=== PATIENT | female | born 1995 | race Caucasian/White ===

== ENCOUNTER → 2018-04-11 20:58 | Emergency (ER) | payer BC, OTHER ==
[~2018-04-11 20:58] MED LIST: Azithromycin TAB* 250 MG PO ONE; Levonorgestrel 1.5 MG TAB PO ONE; Lidocaine 1%* 5 ML VIAL ONE; Ondansetron ODT TAB* 4 MG ONE; Ondansetron ODT TAB* 4 MG SL PRN; cefTRIAXone VIAL(*) 250 MG VIAL IM ONE; metroNIDAZOLE TAB* 250 MG PO ONE
[2018-04-11 21:05] VITALS: BP 124/81
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
== END | disposition home or self-care (01) ==
LOC: ED 20:58
DX: T74.21XA Adult sexual abuse, confirmed, initial encounter (principal); Y07.9 Unspecified perpetrator of maltreatment and neglect; Z11.4 Encounter for screening for human immunodeficiency virus [HIV]
CPT/HCPCS: 36415; 84702; 86703; 86803; 87340; 96372; 99284; A9270-GY; J0696

== ENCOUNTER 2019-08-07 12:41 | Emergency (ER) | payer BC ==
[2019-08-07 13:13] VITALS: BP 120/84
[2019-08-07] MEDS ORDERED: Ketorolac *IM* INJ* 60 MG/2 ML VIAL IM ONE (13:33)
[2019-08-07] MEDS ORDERED: Ondansetron ODT TAB* 4 MG SL ONE (13:33)
--- NOTE | 2019-08-07 13:35 | UC ---
Complaint Female HPI - HPI Summary HPI Summary: 24 yo female presents with left flank pain. She tells me that last night she developed some left flank stabbing pain that was mild. This morning pain is worse and she feels nauseous. She has not had anything to eat today due to nausea. She is currently on her period. She states she had a kidney stone on the right side and this feels similar. Denies fever, chills, abdominal pain, dysuria, urinary frequency, diarrhea, SOB, or chest pain. No vaginal discharge. - History Of Current Complaint Chief Complaint: UCBackPain Stated Complaint: SIDE PAIN Time Seen by Provider: 08/07/19 13:14 Hx Obtained From: Patient Hx Last Menstrual Period: 08/06/19 Onset/Duration: Sudden Onset Severity Initially: Mild Severity Currently: Moderate Pain Intensity: 7 Pain Scale Used: 0-10 Numeric - Allergies/Home Medications Allergies/Adverse Reactions: Allergies Allergy/AdvReac Type Severity Reaction Status Date / Time No Known Allergies Allergy Unverified 08/07/19 13:07 PMH/Surg Hx/FS Hx/Imm Hx - Additional Past Medical History Additional PMH: Right renal stones Psychological History: Anxiety, Depression - Surgical History Surgical History: None - Family History Known Family History: Negative: Hypertension, Diabetes - Social History Lives: With Family Alcohol Use: None Substance Use Type: None Smoking Status (MU): Never Smoked Tobacco - Immunization History Vaccination Up to Date: Yes Review of Systems All Other Systems Reviewed And Are Negative: No Constitutional: Positive: Negative Skin: Positive: Negative Respiratory: Positive: Negative Cardiovascular: Positive: Negative Gastrointestinal: Positive: Nausea Genitourinary: Positive: Other - Left flank pain Neurological: Positive: Negative Psychological: Positive: Negative Physical Exam - Summary Physical Exam Summary: GENERAL: NAD. WDWN. No pain distress. SKIN: No rashes, sores, lesions, or open wounds. NECK: Supple. Nontender. No lymphadenopathy. CHEST: CTAB. No r/r/w. No accessory muscle use. Breathing comfortably and in no distress. CV: RRR. Without m/r/g. Pulses intact. Cap refill <2seconds ABDOMEN: Mild left CVA TTP. Soft. NTTP. No distention or guarding. Bowel sounds present NEURO: Alert. PSYCH: Age appropriate behavior. Triage Information Reviewed: Yes Vital Signs: Initial Vital Signs Temp 97.9 F 08/07/19 13:08 Pulse 58 08/07/19 13:08 Resp 16 08/07/19 13:08 BP 120/84 08/07/19 13:08 Pulse Ox 99 08/07/19 13:08 Laboratory Tests 08/07/19 08/07/19 13:31 13:33 POC Urine Color Red A POC Urine Clarity Cloudy POC Urine pH 6.0 POC Ur Specif Charlo 1.025 POC Urine Protein 2+ A POC Ur Glucose (UA) Negative POC Urine Ketones Negative POC Urine Blood 3+ A POC Urine Nitrite Negative POC Urine Bilirubin Negative POC Urine Urobilinogen 0.2 POC U Leukocyte Esteras Negative POC Ur Test Negative Vital Signs Reviewed: Yes Diagnostics - Radiology Ct ab/pelv Radiology Interpretation Completed By: Radiologist Summary of Radiographic Findings: KIDNEYS: There are multiple left renal calyceal stones measuring up to 0.4 cm. There is a 0.5 cm calculus of the left UPJ with mild pelvocaliectasis. IMPRESSION: LEFT NEPHROLITHIASIS INCLUDING A LEFT UPJ CALCULUS WITH MILD PELVIC CALIECTASIS. Complaint Female Dx - Course Course Of Treatment: CT as above. Discussed with pt. Will start her on flomax, zofran, and norco prn pain. Advised to call Urology at the number below to schedule an appointment for a recheck within 1 week - Differential Dx/Diagnosis Provider Diagnosis: Renal calculi Discharge ED - Sign-Out/Discharge Documenting (check all that apply): Patient Departure All imaging exams completed and their final reports reviewed: Yes - Discharge Plan Condition: Stable Disposition: HOME Prescriptions: Hydrocodone/Acetaminophen [[place] 5-325 Tablet] 1 each PO Q8H PRN #9 tablet MDD 3 PRN Reason: Pain - Moderate Ondansetron ODT TAB* [Zofran 4 MG Odt TAB*] 4 mg PO Q8H PRN #12 tab.odt PRN Reason: Nausea Tamsulosin CAP* [Flomax CAP*] 0.4 mg PO DAILY #14 cap Patient Education Materials: Kidney Stones (ED), Renal Colic (ED) Referrals: Ashley Crocker MD [Primary Care Provider] - Steve Ramos MD [Medical Doctor] - As Soon As Possible Additional Instructions: If you develop a fever, shortness of breath, chest pain, new or worsening symptoms - please call your PCP or go to the ED immediately. Drink plenty of water! Strain your urine to try and catch the stone for testing. Please call Urology at the number below to schedule a follow up appointment within 1 week for a recheck of your stone - Billing Disposition and Condition Condition: STABLE Disposition: Home - Attestation Statements Provider Attestation: I was available for consult. This patient was seen by the [facility]. The patient was not presented to, seen by, or examined by me. -Caryl
== END 2019-08-07 14:30 | disposition home or self-care (01) ==
LOC: UCEAST 12:41
DX: N20.0 Calculus of kidney (principal); N28.89 Other specified disorders of kidney and ureter; Z87.442 Personal history of urinary calculi
CPT/HCPCS: 74176; 81003; 84702; 99212; A9270-GY; G0463; J1885

== ENCOUNTER 2019-08-12 07:33 | Emergency (ER) | payer BC ==
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
[2019-08-12 07:47] VITALS: BP 132/97
--- NOTE | 2019-08-12 08:35 | UC ---
Back Pain HPI - HPI Summary HPI Summary: Ms. Howard was here in the second and diagnosed with a left 5 mm UPJ kidney stone. She's been doing fine at home but today she has more pain and has vomited several times. The pain is still in the same spot on the left side. She denies any fever or chills. - History of Current Complaint Chief Complaint: UCGI Stated Complaint: VOMITING AND SIDE PAIN Time Seen by Provider: 08/12/19 08:04 Hx Obtained From: Patient Hx Last Menstrual Period: 08/06/19 Onset/Duration: Sudden Onset Timing: Constant Severity Initially: Moderate Severity Currently: Moderate Pain Intensity: 8 Character: Aching Aggravating Factor(s): Nothing Alleviating Factor(s): Nothing Associated Signs And Symptoms: Positive: Negative - Allergies/Home Medications Allergies/Adverse Reactions: Allergies Allergy/AdvReac Type Severity Reaction Status Date / Time No Known Allergies Allergy Unverified 08/12/19 07:47 PMH/Surg Hx/FS Hx/Imm Hx Previously Healthy: Yes - Surgical History Surgical History: None - Family History Known Family History: Negative: Hypertension, Diabetes - Social History Alcohol Use: Occasionally Substance Use Type: None Smoking Status (MU): Never Smoked Tobacco - Immunization History Vaccination Up to Date: Yes Review of Systems All Other Systems Reviewed And Are Negative: Yes Physical Exam - Summary Physical Exam Summary: She is nontoxic in appearance, her vitals are stable and she does not appear to be in any distress. Triage Information Reviewed: Yes Appearance: Well-Appearing, No Pain Distress Vital Signs: Initial Vital Signs Temp 97.4 F 08/12/19 07:39 Pulse 59 08/12/19 07:39 Resp 18 08/12/19 07:39 BP 132/97 08/12/19 07:39 Pulse Ox 97 08/12/19 07:39 Vital Signs Reviewed: Yes Respiratory Exam: Normal Cardiovascular Exam: Normal Abdominal Exam: Normal Musculoskeletal Exam: Normal - No CVA tenderness Neurological Exam: Normal Back Pain Course/Dx - Course Course Of Treatment: I spoke with Dr. Thibodeaux about following up as I don't think she is going to pass this half centimeter stone on her own. She looks fairly comfortable and I will give her pain medication and he will follow her up in the office. Her UA again shows only microscopic blood. - Differential Dx/Diagnosis Provider Diagnosis: Kidney stone on left side Discharge ED - Sign-Out/Discharge Documenting (check all that apply): Patient Departure All imaging exams completed and their final reports reviewed: Yes - Discharge Plan Condition: Stable Disposition: HOME Patient Education Materials: Kidney Stones (ED) Referrals: Ashley Crocker MD [Primary Care Provider] - Madi Thibodeaux MD [Medical Doctor] - - Billing Disposition and Condition Condition: STABLE Disposition: Home
== END 2019-08-12 09:20 | disposition home or self-care (01) ==
LOC: UCEAST 07:33
DX: N20.0 Calculus of kidney (principal)
CPT/HCPCS: 74018; 81003; 99212; G0463

== ENCOUNTER 2019-09-19 17:56 | Emergency (ER) | payer BC ==
[2019-09-19] MEDS ORDERED: Ondansetron ODT TAB* 4 MG PO ONE (18:18)
[2019-09-19] MEDS ORDERED: Ketorolac INJ* 30 MG/ML 1 ML VIAL IV PUSH ONE (18:40)
[2019-09-19] MEDS ORDERED: NS 0.9% 1000 ML** 1,000 ML IV ONE (18:42)
--- NOTE | 2019-09-19 19:13 | UC ---
Complaint Female HPI - HPI Summary HPI Summary: 24-year-old female with left flank pain which started at noon today. She has had some intermittent nausea and some urinary frequency. She took one Azo pill today. She denies any fever or chills. She has a history of a kidney stone approximately one month ago and she states this feels similar to that. She did not follow-up with a urologist at the time. - History Of Current Complaint Chief Complaint: UCGU Stated Complaint: SIDE PAIN Time Seen by Provider: 09/19/19 18:18 Hx Obtained From: Patient Hx Last Menstrual Period: 2 weeks ago ?: No Onset/Duration: Sudden Onset Timing: Constant Severity Initially: Moderate Severity Currently: Moderate Pain Intensity: 7 Character: Sharp Aggravating Factor(s): Nothing Associated Signs And Symptoms: Positive: Back Pain, Nausea - Allergies/Home Medications Allergies/Adverse Reactions: Allergies Allergy/AdvReac Type Severity Reaction Status Date / Time No Known Allergies Allergy Unverified 08/12/19 07:47 Home Medications: Home Medications Amlodipine Bes/Olmesartan Med [Emily 5-20 mg] 1 tab PO Q12H PRN 09/19/19 [ History Confirmed 09/19/19] Etonogest/Eth.estradiol (Nf) [Nuvaring Vaginal Ring] 1 each VAGINAL .SEE COMMENTS 09/19/19 [History Confirmed 09/19/19] PMH/Surg Hx/FS Hx/Imm Hx Previously Healthy: Yes GI/ History: Kidney Stones - Patient had a kidney stone one month ago. - Surgical History Surgical History: None - Family History Known Family History: Negative: Hypertension, Diabetes - Social History Alcohol Use: Occasionally Substance Use Type: None Smoking Status (MU): Never Smoked Tobacco - Immunization History Vaccination Up to Date: Yes Review of Systems All Other Systems Reviewed And Are Negative: Yes Genitourinary: Positive: Frequency, Urgency Musculoskeletal: Positive: Other: - Left flank pain radiating around her back. Is Patient Immunocompromised?: No Physical Exam Triage Information Reviewed: Yes Appearance: Well-Appearing, No Pain Distress, Well-Nourished Vital Signs: Initial Vital Signs Temp 98.1 F 09/19/19 18:19 Pulse 58 09/19/19 18:19 Resp 18 09/19/19 18:19 BP 130/65 09/19/19 18:19 Pulse Ox 99 09/19/19 18:19 Vital Signs Reviewed: Yes Respiratory: Positive: Lungs clear, Normal breath sounds, No respiratory distress, No accessory muscle use Cardiovascular: Positive: RRR, No Murmur, Pulses Normal, Brisk Capillary Refill Abdomen Description: Positive: Nontender, No Organomegaly, Soft. Negative: CVA Tenderness (R), CVA Tenderness (L), Distended, Guarding, Hepatomegaly, Splenomegaly Bowel Sounds: Positive: Present Musculoskeletal Exam: Normal Neurological Exam: Normal Psychological Exam: Normal Skin Exam: Normal Re-Evaluation - Re-Evaluation First Eval Change: Improved - Patient is pain free. No further nausea. She would like to go home and she may continue increasing fluids and I wrote a prescription for Zofran 4 mg every 8 hours as needed for nausea and Motrin 600 mg every 8 hours as needed for pain. If she develops pain during the night she is to go to the emergency room for further treatment. Complaint Female Dx - Course Course Of Treatment: Patient was given Zofran 4 mg by mouth. He was given 1 L of normal saline and Toradol 30 mg IV. Renal Sonogram:FINDINGS: Right kidney: Right kidney measures 9.3 x 4.4 x 4.1 cm (88 cc). No solid cortical lesions, calculi, or pelvocaliectasis. Left kidney: Left kidney measures 11.3 x 6.7 x 4.9 cm (195 cc). Midpole nonobstructing renal calculus measuring up to 0.8 cm. No pelvocaliectasis or solid cortical lesions. Bladder: The bladder is decompressed but otherwise normal. Pre-void volume = 10 mL. Ureteral jets are not identified. IMPRESSION: 1. Left nephrolithiasis. 2. Nondistended bladder with no ureteral jets which is nonspecific. Tomorrow she is to call the urologist and make an appointment to be seen. - Differential Dx/Diagnosis Provider Diagnosis: Kidney stone on left side Discharge ED - Sign-Out/Discharge Documenting (check all that apply): Patient Departure All imaging exams completed and their final reports reviewed: Yes - Discharge Plan Condition: Good Disposition: HOME Prescriptions: Ibuprofen TAB* [Motrin TAB* 600 MG] 600 mg PO Q8H PRN #20 tab PRN Reason: Pain - Mild Ondansetron HCl [Zofran] 4 mg PO Q8H PRN #15 tablet PRN Reason: Nausea Patient Education Materials: Kidney Stones (ED) Referrals: Madi Thibodeaux MD [Medical Doctor] - Steve Ramos MD [Medical Doctor] - Ashley Crocker MD [Primary Care Provider] - Additional Instructions: Increase fluids. Definite follow-up with the urologist by phone tomorrow to schedule an appointment. If your pain returns or worsens you are to go to the emergency room for further evaluation and treatment. - Billing Disposition and Condition Condition: GOOD Disposition: Home
[2019-09-19 20:47] VITALS: BP 128/76
== END 2019-09-19 20:35 | disposition home or self-care (01) ==
LOC: UCEAST 17:56
DX: N20.0 Calculus of kidney (principal)
CPT/HCPCS: 76775; 81003; 84702; 87086; 96360; 96374; 99212; A9270-GY; G0463; J1885

== ENCOUNTER 2019-11-20 19:19 | Emergency (ER) | payer BC ==
--- OUTSIDE RECORDS SUMMARY | 2019-11-20 19:24 | XMS REPORT | Summary of Care ---
:1995 Author Organization [facility] Address [address] [address] Care Team Providers Name Role Phone Ashley Crocker Primary Care Provider Reason for Visit Reason Comments Follow Up medication refill, pt stated she is doing well on the prozac Encounter Details Date Type Department Care Team Description 11/11/2019 Office Visit [facility] [place], Anxiety and depression ( Primary Dx); Practice MD Ashley Insulin resistance; [address] [facility] Elevated prolactin level (HCC) [place] [address] [place] [address] [phone] Allergies No Known Allergiesdocumented as of this encounter (statuses as of 11/11/2019) Medications Medication Sig Dispensed Refills Start Date End Date Status Etonogestrel-Ethin Place 1 Device 0 Active yl Estradiol into the (NUVARING) vagina EVERY 0.12-0.015 MG/24HR 28 DAYS. Vaginal RING Fluoxetine HCl 40 Take 1 Cap by 30 Cap 1 11/11/2019 Active MG Oral Cap mouth DAILY. Drospirenone-Ethin Take 1 Tab by 28 Tab 5 10/03/2018 11/11/2019 Discontinued yl Estradiol (KAI) mouth DAILY AT 3-0.02 MG Oral Tab 1400. fluoxetine Take 1 Cap by 30 Cap 0 10/24/2019 11/11/2019 Discontinued (PROZAC) 20 MG mouth DAILY. Oral Cap documented as of this encounter (statuses as of 11/11/2019) Active Problems Problem Noted Date Insulin resistance 09/17/2018 Nephrolithiasis 12/18/2017 documented as of this encounter (statuses as of 11/11/2019) Immunizations Name Administration Dates Next Due DTAP Vaccine 07/10/2001, 10/15/1997, 01/27/1997, 1996, 1996 HIB 10/15/1997, 01/27/1997, 1996, 1996 Hepatitis A Vaccine Peds 02/26/2009, 06/05/2008 Hepatitis B Vaccine 05/24/2006, 01/27/1997, 1996 Human Papillomavirus 12/20/2008, 08/04/2008, 06/05/2008 Influenza (IM) Preservative Free 08/27/2019, 12/18/2017 MENINGOCOCCAL CONJUGATE VACCINE 06/10/2013, 06/05/2008 MMR [...] Sign Reading Time Taken Comments Blood Pressure 110/62 11/11/2019 10:38 AM EST Pulse 72 11/11/2019 10:38 AM EST Temperature 37.4 11/11/2019 10:38 AM EST C (99.3 F) Respiratory Rate - - Oxygen Saturation 100% 11/11/2019 10:38 AM EST Inhaled Oxygen Concentration - - Weight 89.6 kg (197 lb 9.6 oz) 11/11/2019 10:38 AM EST Height 170.2 cm (5' 7") 11/11/2019 10:38 AM EST Body Mass Index 30.95 11/11/2019 10:38 AM EST documented in this encounter Patient Instructions Patient InstructionsAshley Crocker MD - 11/11/2019 10:40 AM EST1. Increase Prozac to 40 mg once a day ( 2 tablets of 20 mg or 1 tablet of 40 mg) 2. Follow up in 3 weeks and as needed documented in this encounter Progress Notes Ashley Crocker MD - 11/11/2019 10:40 AM EST Patient: Donya Howard Date of Service: 11/11/2019 Subjective: Donya Howard is a 24-y.o. female who presents for Chief Complaint Patient presents with Follow Up medication refill, pt stated she is doing well on the prozac Patient comes follow up anxiety/depression Depression symptoms are well controlled on current dose of Prozac, but recently was having anxiety attacks 1-2 times a week Tolerates Prozac well Also has history of insulin resistance, slightly elevated Prolactin Periods are regular on Nuvaring Past Medical History: Diagnosis Date Depression Kidney stone No current outpatient medications on file as of 11/11/2019. No current facility-administered medications on file as of 11/11/2019. No Known Allergies Review of Systems: All remaining review of systems was negative. Objective: BP 110/62 (BP Location: Left arm, Patient Position: Sitting) Pulse 72 Temp 99.3 F (37.4 C) Ht 5' 7" (1.702 m) Wt 197 lb 9.6 oz (89.6 kg) SpO2 100 % BMI 30.95 kg/m2 General appearance: alert, well appearing, and in no distress. Mental Status: alert, oriented to person, place, and time, normal mood, behavior , speech, dress, motor activity, and thought processes. ICD-9-CM ICD-10-CM 1. Anxiety and depression 300.00 F41.9 311 F32.9 2. Insulin resistance 277.7 E88.81 INSULIN LEVEL COMPREHENSIVE METABOLIC PANEL 3. Elevated prolactin level (HCC) 253.1 E22.9 PROLACTIN Patient Instructions 1. Increase Prozac to 40 mg once a day ( 2 tablets of 20 mg or 1 tablet of 40 mg ) 2. Follow up in 3 weeks and as needed Adacel next visit Author: Ashley Crocker MD documented in this encounter Plan of Treatment Date Type Specialty Care Team Description 12/02/2019 Office Visit Family Practice Ashley Crocker MD [address] [address] [phone] Name Type Priority Associated Diagnoses Order Schedule INSULIN LEVEL Lab Routine Insulin resistance Ordered: 11/11/2019 COMPREHENSIVE METABOLIC Lab Routine Insulin resistance Ordered: 11/11/2019 PANEL PROLACTIN Lab Routine Elevated prolactin level Ordered: 11/11/2019 (HCC) Health Maintenance Due Date Last Done Comments DTaP/Tdap/Td Vaccines (7 - 05/07/2017 05/07/2007, 07/10/2001, Tdap) 10/15/1997, Additional history exists DEPRESSION SCREENING 11/11/2020 11/11/2019 PAP SMEAR 01/08/2021 01/08/2018 HPV IMMUNIZATION SERIES Completed 12/20/2008, 08/04/2008, 06/05/2008 HEPATITIS A IMMUNIZATION Completed 02/26/2009, 06/05/2008 SERIES MENINGOCOCCAL VACCINE IMM Completed 06/10/2013, 06/05/2008 INFLUENZA VACCINE Completed 08/27/2019, 12/18/2017 PNEUMOCOCCAL 0-64 YRS Aged Out No longer eligible based on patient's age to complete this topic documented as of this encounter Results Not on filedocumented in this encounter Visit Diagnoses Diagnosis Insulin resistance Dysmetabolic Syndrome X Elevated prolactin level (HCC) Other and unspecified anterior pituitary hyperfunction Anxiety and depression Dysthymic disorder documented in this encounter Insurance Payer Benefit Plan / Subscriber ID Effective Dates Phone Address Type Group BCBS NATIONAL BCBS NATIONAL xxxxxxxxxxxx 2017-Pres[place] Blue t Cross/Blue Shield documented as of this encounter
[2019-11-20 19:36] VITALS: BP 143/89
--- NOTE | 2019-11-20 19:37 | UC ---
Abdominal Pain Female HPI - HPI Summary HPI Summary: 24 yo female presents with ?kidney stone. She has had many issues with kidney stones over the last 6 months. This morning she woke up and noticed left flank pain. Around midday she started having increased pain, vomiting, and felt feverish. She was at work and states they would not let her leave. She has vomited about 10 times today. Nothing to eat. Took a zofran around 1600 that did not help. She has pain with urination. She denies SOB, chest pain, abdominal pain. She is followed by [facility] and states they are trying to have her strain her urine to test a stone, but she has not been successful yet. - History of Current Complaint Chief Complaint: UCGI Stated Complaint: VOMITING Time Seen by Provider: 11/20/19 19:37 Hx Obtained From: Patient Hx Last Menstrual Period: TODAY Onset/Duration: Sudden Onset Severity Initially: Moderate Severity Currently: Moderate Pain Intensity: 5 Allergies/Adverse Reactions: Allergies Allergy/AdvReac Type Severity Reaction Status Date / Time No Known Allergies Allergy Unverified 11/20/19 19:34 PMH/Surg Hx/FS Hx/Imm Hx - Additional Past Medical History Additional PMH: Kidney stones Psychological History: Anxiety - Surgical History Surgical History: None - Family History Known Family History: Negative: Hypertension, Diabetes - Social History Occupation: Employed Full-time Lives: With Family Alcohol Use: Occasionally Substance Use Type: None Smoking Status (MU): Never Smoked Tobacco - Immunization History Vaccination Up to Date: Yes Review of Systems All Other Systems Reviewed And Are Negative: No Constitutional: Positive: Fever Skin: Positive: Negative Eyes: Positive: Negative ENT: Positive: Negative Respiratory: Positive: Negative Cardiovascular: Positive: Negative Gastrointestinal: Positive: Vomiting, Nausea Genitourinary: Positive: Dysuria, Other - Flank pain Neurovascular: Positive: Negative Neurological: Positive: Negative Psychological: Positive: Negative Physical Exam - Summary Physical Exam Summary: GENERAL: NAD. WDWN. SKIN: No rashes, sores, lesions, or open wounds. NECK: Supple. Nontender. No lymphadenopathy. CHEST: CTAB. No r/r/w. No accessory muscle use. Breathing comfortably and in no distress. CV: RRR. Pulses intact. Cap refill <2seconds ABDOMEN: Soft. NTTP. Mild left CVA tenderness. Bowel sounds present NEURO: Alert. PSYCH: Age appropriate behavior. Triage Information Reviewed: Yes Vital Signs: Initial Vital Signs Temp 100.5 F 11/20/19 19:34 Pulse 108 11/20/19 19:34 Resp 18 11/20/19 19:34 BP 143/89 11/20/19 19:34 Pulse Ox 100 11/20/19 19:34 Laboratory Tests 11/20/19 11/20/19 19:42 19:47 POC Urine Color Dark yellow POC Urine Clarity Clear POC Urine pH 5.5 POC Ur Specif [place] 1.025 POC Urine Protein Negative POC Ur Glucose (UA) Negative POC Urine Ketones Negative POC Urine Blood 2+ A POC Urine Nitrite Negative POC Urine Bilirubin 1+ A POC Urine Urobilinogen 0.2 POC U Leukocyte Esteras 1+ A POC Ur Test Negative Vital Signs Reviewed: Yes Abd Pain Female Course/Dx - Course Course Of Treatment: UA as above. Febrile with positive leuks and known history of kidney stones. Unable to perform US this evening at . Discussed with pt and recommend going to the ED for further evaluation. Pt was agreeable to this and her mother will drive her. - Differential Dx/Diagnosis Provider Diagnosis: History of kidney stones, Fever, Vomiting Discharge ED - Sign-Out/Discharge Documenting (check all that apply): Patient Departure All imaging exams completed and their final reports reviewed: No Studies - Discharge Plan Condition: Stable Disposition: HOME-RECOMMEND TO ED Referrals: Ashley Crocker MD [Primary Care Provider] - Additional Instructions: Please go to the ER - it appears you may have an infected kidney stone - Billing Disposition and Condition Condition: STABLE Disposition: Home-Recommend to ED
[2019-11-20] MEDS ORDERED: Ondansetron ODT TAB* 4 MG SL ONE (19:45)
== END 2019-11-20 19:55 | disposition home health service (06) ==
LOC: UCEAST 19:19
DX: R11.2 Nausea with vomiting, unspecified (principal); R50.9 Fever, unspecified; R30.0 Dysuria; Z87.442 Personal history of urinary calculi
CPT/HCPCS: 81003; 84702; 87077; 87086; 87186; 99212; G0463

== ENCOUNTER 2019-11-20 20:09 | Inpatient (IN) | payer BC ==
[2019-11-20] MEDS ORDERED: NS 0.9% 1000 ML** 1,000 ML IV ONE ×2 (22:27→23:16)
--- NOTE | 2019-11-20 22:27 | ED ---
GI/ HPI - HPI Summary HPI Summary: Patient with history of recurrent left flank pain over the past couple months complains of left flank pain and nausea and vomiting starting at 7 AM today. Vomiting at least 20 times. Evaluated at [facility] and sent to the ED for further evaluation. Temperature 100.5 at convenient care. Patient has had +[address] in September. Being followed by Dr. Thibodeaux urology. Patient states she gets flareups of flank pain which then resolve. Per patient urology has advised her to strain her urine. Patient says she is straining her urine, but does not strain while at work and is unsure if she has passed a stone at any point during these episodes of recurrent flank pain. Denies cough, sore throat , CP, SOB, diarrhea, abdominal pain, change in urine, change in BM. Denies medical history. - History of Current Complaint Chief Complaint: EDAbdPain Time Seen by Provider: 11/20/19 22:20 Stated Complaint: POSS KIDNEY STONE PER PT Hx Obtained From: Patient Hx Last Menstrual Period: TODAY Onset/Duration: Started Hours Ago Timing: Constant Severity: Moderate Current Severity: Moderate Pain Intensity: 7 Location of Pain: Flank Pain Characteristics: Sharp, Colicy Associated Signs and Symptoms: Positive: Nausea, Vomiting, Flank Pain Aggravating Factor(s): Nothing Alleviating Factor(s): Nothing - Allergy/Home Medications Allergies/Adverse Reactions: Allergies Allergy/AdvReac Type Severity Reaction Status Date / Time No Known Allergies Allergy Verified 11/20/19 20:12 PMH/Surg Hx/FS Hx/Imm Hx Endocrine/Hematology History: Denies: Hx Diabetes, Hx Thyroid Disease Cardiovascular History: Denies: Hx Hypertension Respiratory History: Denies: Hx Asthma, Hx Chronic Obstructive Pulmonary Disease (COPD) GI History: Denies: Hx Ulcer History: Denies: Hx Dialysis Sensory History: Denies: Hx Eye Prosthesis Opthamlomology History: Denies: Hx Legally Blind EENT History: Denies: Hx Deafness Infectious Disease History: No Infectious Disease History: Denies: Hx Clostridium Difficile, Hx Hepatitis, Hx Human Immunodeficiency Virus (HIV), Hx of Known/Suspected MRSA, Hx Shingles, Hx Tuberculosis, Hx Known/ Suspected VRE, Hx Known/Suspected VRSA, History Other Infectious Disease, Traveled Outside the [place] in Last 30 Days - Family History Known Family History: Negative: Hypertension, Diabetes - Social History Alcohol Use: Occasionally Substance Use Type: Reports: None Smoking Status (MU): Never Smoked Tobacco Review of Systems Positive: Fever Eyes: Negative ENT: Negative Cardiovascular: Negative Respiratory: Negative Positive: Vomiting Positive: flank pain Musculoskeletal: Negative Skin: Negative Neurological: Negative Psychological: Normal All Other Systems Reviewed And Are Negative: Yes Physical Exam Triage Information Reviewed: Yes Vital Signs On Initial Exam: Initial Vitals Temp Pulse Resp BP Pulse Ox 97.6 F 95 18 157/83 99 11/20/19 20:12 11/20/19 20:12 11/20/19 20:12 11/20/19 20:12 11/20/19 20:12 Vital Signs Reviewed: Yes Appearance: Positive: Well-Appearing Skin: Positive: Warm Head/Face: Positive: Normal Head/Face Inspection Eyes: Positive: Normal Neck: Positive: Supple Respiratory/Lung Sounds: Positive: Clear to Auscultation Cardiovascular: Positive: Normal Abdomen Description: Positive: Nontender. Negative: CVA Tenderness (R), CVA Tenderness (L) Musculoskeletal: Positive: Normal Neurological: Positive: Normal Psychiatric: Positive: Normal AVPU Assessment: Alert - Pierre Coma Scale Best Eye Response: 4 - Spontaneous Best Motor Response: 6 - Obeys Commands Best Verbal Response: 5 - Oriented Coma Scale Total: 15 Procedures - Sedation Patient Received Moderate/Deep Sedation with Procedure: No Diagnostics - Vital Signs Vital Signs Temp Pulse Resp BP Pulse Ox 11/20/19 20:12 97.6 F 95 18 157/83 99 - Laboratory Result Diagrams: 11/20/19 23:03 11/20/19 23:03 Lab Statement: Any lab studies that have been ordered have been reviewed, and results considered in the medical decision making process. GIGU Course/Dx - Course Course Of Treatment: Patient with history of recurrent left flank pain over the past couple months complains of left flank pain and nausea and vomiting starting at 7 AM today. Vomiting at least 20 times. Evaluated at and sent to the ED for further evaluation. Temperature 100.5 at convenient care. Patient has had +[address] in September. Being followed by Dr. Thibodeaux urology. Patient states she gets flareups of flank pain which then resolve. Per patient urology has advised her to strain her urine. Patient says she is straining her urine, but does not strain while at work and is unsure if she has passed a stone at any point during these episodes of recurrent flank pain. Denies cough, sore throat, CP, SOB, diarrhea, abdominal pain, change in urine, change in BM. Denies medical history. Patient mildly tachycardic with heart rate between 101 20. Vital signs otherwise within normal limits. WBC 16. COPD 2. Potassium 4.3. Urine positive for UTI. Renal ultrasound indicates lack of left ureteral jet, suggesting obstruction. Discussed patient with urology Dr. Thibodeaux recommends admission with urology evaluation in the morning. - Diagnoses Provider Diagnoses: Ureteral obstruction, left, UTI (urinary tract infection) Discharge ED - Sign-Out/Discharge Documenting (check all that apply): Patient Departure - Discharge Plan Condition: Stable Disposition: ADMITTED TO [facility] - Billing Disposition and Condition Condition: STABLE Disposition: Admitted to [facility]
[2019-11-20 22:37] LABS: Urine Appearance Cloudy; Urine Bilirubin Negative (Negative); Urine Blood 3+ (Negative); Urine Color Yellow; Urine Glucose Negative (Negative); Urine Ketones 1+ (Negative); Urine Nitrite Negative (Negative); Urine Protein 1+(30 mg/dL) (Negative); Urine Specific Gravity 1.016 (1.010-1.030); Urine Urobilinogen Negative (Negative)
[2019-11-20 22:39] LABS: Urine Bacteria 1+ (Absent); Urine Red Blood Cell 3+(>10/hpf) (Absent); Urine Squamous Epithelial Cell Present (Absent); Urine White Blood Cell 2+(11-20/hpf) (Absent)
[2019-11-20] MEDS ORDERED: Ketorolac INJ* 30 MG/ML 1 ML VIAL IV ONE (23:09)
[2019-11-20] MEDS ORDERED: Ondansetron INJ* 2 MG/ML VIAL IV ONE (23:09)
[2019-11-20 23:13] LABS: ABS Lymphocytes 0.2 10^3/ul (1.0-4.8); ABS Monocytes 0.4 10^3/ul (0-0.8); ABS Neutrophils 15.3 10^3/ul (1.5-7.7); Hematocrit 38 % (35-47); Hemoglobin 13.5 g/dL (12.0-16.0); Lymphocyte % 1.4 %; Mean Corpuscular HGB Conc 35 g/dL (31-36); Mean Corpuscular Hemoglobin 33 pg (27-31); Mean Corpuscular Volume 93 fL (80-97); Platelet Count 263 10^3/uL (150-450); Red Blood Count 4.14 10^6 /uL (3.70-4.87); Red Cell Distribution Width 12 % (10-15)
[2019-11-20] MEDS ORDERED: cefTRIAXone(*) 2 GM in NS 0.9% 100 ML* 100 ML IVPB ONE (23:17)
[2019-11-20 23:29] LABS: ALT 13 U/L (7-52); AST 15 U/L (13-39); Albumin 3.9 g/dL (3.2-5.2); Albumin/Globulin Ratio 1.2 (1-3); Alkaline Phosphatase 53 U/L (34-104); Anion Gap 10 mmol/L (2-11); BUN/Creatinine Ratio 12.1 (8-20); Blood Urea Nitrogen 13 mg/dL (6-24); C Reactive Protein 82.54 mg/L (<8.01); CO2 Carbon Dioxide 25 mmol/L (22-32); Calcium 8.9 mg/dL (8.6-10.3); Chloride 100 mmol/L (101-111); EGFR African American 76.9 (>60); EGFR Non-African American 63.5 (>60); Globulin 3.2 g/dL (2-4); Glucose 103 mg/dL (70-100); Potassium 3.3 mmol/L (3.5-5.0); Sodium 135 mmol/L (135-145); Total Protein 7.1 g/dL (6.4-8.9)
[2019-11-20 23:35] LABS: HCG Pregnancy < 0.60 mIU/mL
[2019-11-21] MEDS ORDERED: Potassium Chlor TAB* 20 MEQ TAB.ER PO ONE (00:16)
[2019-11-21] MEDS ORDERED: Acetaminophen TAB* 325 MG ONE (01:37)
--- NOTE | 2019-11-21 05:12 | HP ---
CC: Dr. Ashley Crocker * HISTORY AND PHYSICAL: DATE OF ADMISSION: 11/20/19 - EMERGENCY DEPT PRIMARY CARE PHYSICIAN: Dr. Ashley Crocker. CHIEF COMPLAINT: Left-sided flank pain. HISTORY OF PRESENT ILLNESS: This is a 24-year-old female with past medical history of kidney stones, who now presents to the emergency room because of a left-sided flank pain. The patient reports that the pain started about 20 hours prior to now. The left-sided flank pain, sharp pain that comes and goes, it was initially 8/10, currently it is 5/10. The pain is located in the left flank, pain radiates to the groin. There are no fevers or chills. She does have some burning with urination; however, reports that there is no blood in her urine. In the emergency room, the patient was seen and evaluated. Dr. Thibodeaux, urologist was contacted who recommended the patient be admitted for ureteral stent placement, subsequently the hospitalist service was called. PAST MEDICAL HISTORY: Kidney stones. PAST SURGICAL HISTORY: None. MEDICATIONS: Home medications: None. ALLERGIES: No known drug allergies. FAMILY HISTORY: Mother: Possible kidney surgery. Father: Does not know of any medical issues in her father. SOCIAL HISTORY: The patient lives at home, works at a [employer], does not smoke , occasional alcohol use. REVIEW OF SYSTEMS: She does not have any fevers, no chills, no changes with her vision or hearing, no sore throat, no chest pain, no shortness of breath, no palpitations, no cough, no sputum production, no abdominal pain. She is having left-sided flank pain, there is some nausea and vomiting; however. Otherwise, the full review of systems that was done otherwise is negative, otherwise as listed in the HPI. PHYSICAL EXAMINATION GENERAL: This is a well developed, well nourished, young female, lying in bed, in no acute distress. VITAL SIGNS: Blood pressure 99/58, heart rate of 110, respiratory rate of 18, saturation of 98% on room air. HEENT: Pupils are equal, round, reactive to light, atraumatic, normocephalic. NECK: Supple with no JVD. She does not have any cervical lymphadenopathy. RESPIRATORY: There is no tachypnea, no use of accessory muscles. Lungs are clear without any wheezing, rales, or rhonchi. HEART: There is no chest wall tenderness, regular tachycardia with no murmurs, rubs, or gallops. ABDOMEN: Normoactive bowel sounds. Abdomen is soft. There is tenderness at the left flank region as well as the suprapubic region. EXTREMITIES: There is no lower extremity edema. No calf tenderness. Dorsalis pedis is 2+ bilaterally. There is no clubbing, cyanosis, or edema. Range of motion at the knee is intact bilaterally. PSYCH: Mood is appropriate. DIAGNOSTIC STUDIES/LAB DATA: Sodium of 135, potassium of 3.3, chloride of 100 , bicarb of 25, BUN of 13, creatinine of 1.07, glucose of 103. Total bilirubin of 1.6, AST of 15, ALT of 13, alkaline phosphatase of 53, total protein of 7.1, CRP of 82.54. Hemoglobin of 13.5, hematocrit of 38.3, WBC of 16.0, platelets of 263. The patient's urinalysis is pending. Renal ultrasound shows that there is mild left hydronephrosis, but no visible calculus. IMPRESSION AND PLAN: 1. Right sided flank pain with left-sided hydronephrosis: Likely, the patient may have a kidney stone on the left side. Start the patient on IV fluid, Urology has been consulted. They recommended a ureteral stent placement in the morning, made the patient n.p.o.,Pain control with PRN medications. 2. Mild hypotension: This could be secondary to underlying urinary tract infection. I started the patient on IV fluids. 3. Possible urinary tract infection with left hydronephrosis: I started the patient on Rocephin. 4. The patient is admitted as an observation on the medical floor. N.p.o. Vitals per floor protocol. [id number]/[facility] #: [id number] [facility]
[2019-11-21 06:13] LABS: Urine Appearance Cloudy; Urine Bacteria Absent (Absent); Urine Bilirubin Negative (Negative); Urine Blood 3+ (Negative); Urine Color Amber; Urine Glucose Negative (Negative); Urine Ketones Negative (Negative); Urine Nitrite Negative (Negative); Urine Protein 1+(30 mg/dL) (Negative); Urine Red Blood Cell 2+(6-10/hpf) (Absent); Urine Specific Gravity 1.014 (1.010-1.030); Urine Squamous Epithelial Cell Present (Absent); Urine Urobilinogen Negative (Negative); Urine White Blood Cell 3+(>20/hpf) (Absent)
[2019-11-21] MEDS ORDERED: Iohexol 180 (CONTRAST) 10 ML SDV IV ONE (06:25)
[2019-11-21] MEDS ORDERED: Lidocaine 2% PF * 5 ML VIAL ONE ×2 (06:33)
[2019-11-21] MEDS ORDERED: Propofol* 10 MG/ML 20 ML BTL ONE (06:33)
[2019-11-21] MEDS ORDERED: Midazolam* 1 MG/ML 2 ML VIAL (2 MG) ONE (06:33)
[2019-11-21] MEDS ORDERED: fentaNYL* 50 MCG/ML 2 ML VIAL (100 MCG VIAL) ONE (06:34)
[2019-11-21] MEDS ORDERED: Ondansetron INJ* 2 MG/ML VIAL IV PRN (07:00)
[2019-11-21] MEDS ORDERED: cefTRIAXone(*) 1 GM in NS 0.9% 50 ML* 50 ML IVPB SCH (07:00)
[2019-11-21] MEDS ORDERED: Ondansetron INJ* 2 MG/ML VIAL ONE (07:10)
[2019-11-21] MEDS ORDERED: Ketorolac INJ* 30 MG/ML 1 ML VIAL ONE (07:10)
[2019-11-21] MEDS ORDERED: Metoclopramide IV* 5 MG/ML 2 ML VIAL ONE (07:10)
[2019-11-21] MEDS ORDERED: Phenylephrine 40 MCG/ML SYRINGE ONE ×2 (07:10→07:16)
[2019-11-21] MEDS ORDERED: Dexamethasone IV* 4 MG/ML 1 ML (4 MG) ONE (07:10)
[2019-11-21] MEDS ORDERED: Acetaminophen TAB* 325 MG PO PRN (07:24)
[2019-11-21] MEDS ORDERED: Naloxone* 0.4 MG/ML 1 ML VIAL IV PRN (07:24)
[2019-11-21] MEDS ORDERED: oxyCODONE TAB* 5 MG TAB PO PRN (07:24)
[2019-11-21] MEDS ORDERED: DiMENhydriNATE IV* 50 MG/ML VIAL IV PUSH PRN (07:24)
[2019-11-21] MEDS ORDERED: fentaNYL* 50 MCG/ML 2 ML VIAL (100 MCG VIAL) IV PRN (07:24)
[2019-11-21] MEDS: NS 0.9% 1000 ML** 1,000 ML IV SCH ×2 (08:35→17:42)
[2019-11-21] MEDS: cefTRIAXone* 1 GM in NS 0.9% 50 ML BAG IVPB SCH (10:29)
--- NOTE | 2019-11-21 12:29 | PN ---
Hospitalist Progress Note Date of Service: 11/21/19 Pt seen and examined at bedside.Reports improvement in flank pain.Pl see H and P done by Dr Flores a few hours ago for full details.Pt is s/p ureteral stent insertion with Dr Thibodeaux. Blood culture positive for gram neg bacilli likely urinary source.Ua + for infection.Will await results and speciation.will continue Ceftriaxone IV for broad spectrum antibiotics. Made inpatient.Will stay in the hospitals till cultures finalized on iv antibotics and then iv or po abx based on culture and clinical progression
[2019-11-21] MEDS: Acetaminophen TAB* 325 MG PO PRN ×2 (16:53→23:23)
--- NOTE | 2019-11-21 21:12 | OP ---
CC: Dr. Crocker * DATE OF OPERATION: 11/21/19 - ROOM #332 DATE OF : [birth year] SURGEON: Madi Thibodeaux MD ANESTHESIOLOGIST: Dr. Blackmon. ANESTHESIA: General. PRE-OP DIAGNOSES: 1. Left renal colic. 2. Left pyelonephritis. 3. History of left renal calculi. POST-OP DIAGNOSES: 1. Left renal colic. 2. Left pyelonephritis. 3. History of left renal calculi. OPERATIVE PROCEDURE: 1. Cystoscopy. 2. Left retrograde pyelography. 3. Insertion of left ureteral stent (6-Macedonian). INDICATIONS FOR PROCEDURE: Ms. Howard is a 24-year-old white female who presented 3 months ago to the emergency room with symptoms of left renal colic and was noted on noncontrast CT of the abdomen and pelvis to have a 6 mm calculus at the left ureteropelvic junction and there were 2 other smaller calculi in the left kidney. She was managed conservatively. She was referred by her PCP for urology consultation, but she did not pursue. There was no documentation that the stone had passed. The patient presented to the urgent care center yesterday evening because of one - day history of left renal colic. She was then referred to the emergency room . She associated nausea and vomiting and she a fever of 101. CBC in the emergency room showed a white count of 16,000 with a shift to the left. Her urine was positive for infection. Renal ultrasound showed mild left hydronephrosis, but no calculi were seen. No jets were noted from the left ureteral orifice and good jets noted from the right orifice. Because the patient had recent CT, it was not repeated to avoid additional x- ray exposure. With the history of left renal calculi, fever, elevated white count, absent Lt ureteral jets on ultrasound, and infected urine, decision was made to proceed with urgent placement of a left ureteral stent in preparation for definitive treatment of the stone. PATHOLOGY: At cystoscopy, the bladder mucosa looked normal. There were no changes of cystitis. No suspicious bladder lesions seen. There was an orthotopic orifice on each side. No jets were noted from the left orifice. There was no difficulty introducing the guidewire in the left kidney. There was slightly concentrated urine from the left kidney, but did it not look infected. Retrograde pyelography showed fullness of the calices, but no significant hydronephrosis. DESCRIPTION OF PROCEDURE: After successful general anesthesia, the patient was placed in the lithotomy position and was prepped and draped for a cystoscopy. Cystoscopy was performed. The bladder was inspected and the above findings were noted. A flexible-tip hybrid guidewire was introduced into the left orifice and positioned in the area of the renal pelvis. After draining the collecting system , a retrograde pyelography was then performed. A size 6-Macedonian stent was then placed with the proximal end coiling in the renal pelvis and the distal end coiling inside the bladder. There was good drainage of contrast from the kidney and no extravasation. The patient tolerated the procedure well and left the operating room in good condition. The plan is to observe the patient for the next 24 hours and keep her on IV antibiotics. A KUB will be obtained to check for left renal and ureteral calculi. Decision on the definitive treatment of the stone will then be made. [id number]/CPS #: [id number] ETIENNE
[2019-11-22] MEDS ORDERED: Ibuprofen TAB* 400 MG PO ONE (00:30)
[2019-11-22] MEDS ORDERED: NS 0.9% 1000 ML** 1,000 ML IV ONE (00:31)
[2019-11-22] MEDS ORDERED: Ibuprofen TAB* 400 MG ONE ×2 (00:42→13:48)
[2019-11-22] MEDS: NS 0.9% 1000 ML** 1,000 ML IV SCH ×3 (01:47→23:35)
[2019-11-22 06:40] LABS: ABS Monocytes 0.7 10^3/ul (0-0.8); ABS Neutrophils 10.1 10^3/ul (1.5-7.7); Eosinophil % 0.1 %; Hematocrit 32 % (35-47); Hemoglobin 11.1 g/dL (12.0-16.0); Lymphocyte % 8.1 %; Mean Corpuscular HGB Conc 35 g/dL (31-36); Mean Corpuscular Hemoglobin 33 pg (27-31); Mean Corpuscular Volume 93 fL (80-97); Mean Platelet Volume 7.1 fL (7.4-10.4); Platelet Count 169 10^3/uL (150-450); Red Blood Count 3.38 10^6 /uL (3.70-4.87); Red Cell Distribution Width 13 % (10-15); White Blood Count 11.8 10^3/uL (3.5-10.8)
[2019-11-22 07:00] LABS: BUN/Creatinine Ratio 8.1 (8-20); Calcium 7.7 mg/dL (8.6-10.3); EGFR African American 84.1 (>60); EGFR Non-African American 69.5 (>60); Potassium 3.7 mmol/L (3.5-5.0)
[2019-11-22] MEDS: cefTRIAXone* 1 GM in NS 0.9% 50 ML BAG IVPB SCH (09:40)
[2019-11-22] MEDS: Acetaminophen TAB* 325 MG PO PRN ×2 (10:42→20:57)
--- NOTE | 2019-11-22 16:27 | PN ---
Subjective Date of Service: 11/22/19 Interval History: Reports feeling a lot better today,no further flank pain.headache present Objective Active Medications: Acetaminophen (Tylenol Tab*) 650 mg PO Q6H PRN PRN Reason: MILD PAIN or TEMP > 100.4 Last Admin: 11/22/19 10:42 Dose: 650 mg Sodium Chloride (Ns 0.9% 1000 Ml) 1,000 mls @ 150 mls/hr IV PER RATE [facility] Last Admin: 11/22/19 01:47 Dose: 150 mls/hr Ceftriaxone Sodium 1 gm/ (Sodium Chloride) 50 mls @ 100 mls/hr IVPB Q24H [facility] Last Admin: 11/22/19 09:40 Dose: 100 mls/hr Ondansetron HCl (Zofran Inj*) 4 mg IV Q6H PRN PRN Reason: NAUSEA Vital Signs - 8 hr 11/22/19 11/22/19 11:37 15:39 Temperature 98.7 F 98 F Pulse Rate 83 78 Respiratory 16 16 Rate Blood Pressure 116/65 115/73 (mmHg) O2 Sat by Pulse 100 100 Oximetry Oxygen Devices in Use Now: None Eyes: No Scleral Icterus Ears/Nose/Mouth/Throat: NL Teeth, Lips, Gums Neck: NL Appearance and Movements; NL JVP Respiratory: Symmetrical Chest Expansion and Respiratory Effort Cardiovascular: NL Sounds; No Murmurs; No JVD Abdominal: NL Sounds; No Tenderness; No Distention Extremities: No Edema Skin: No Rash or Ulcers Result Diagrams: 11/22/19 06:28 11/22/19 06:28 Microbiology and Other Data: Microbiology 11/20/19 22:53 Aerobic Blood Culture - Final Blood Venous Escherichia Coli Anaerobic Blood Culture - Preliminary No Growth Day 1 11/20/19 23:03 Aerobic Blood Culture - Preliminary Blood Venous No Growth Day 1 Anaerobic Blood Culture - Final Escherichia Coli Assess/Plan/Problems-Billing Assessment: - Patient Problems (1) Sepsis Current Visit: Yes Status: Acute Comment: E coli in Blood On ceftriaxone Sensitive to ceftriaxone Repeat blood cx tomorrow after 48h to eval clearing. If clear and based on clinical progress can decide on po versus iv antibiotics (2) Nephrolithiasis Current Visit: Yes Status: Acute Code(s): N20.0 - CALCULUS OF KIDNEY SNOMED Code(s): 96189273 Comment: with hydro and uti s/p ureteral stent placement kub today reviewed will need further f/u with urology once infection clears (3) UTI (urinary tract infection) Current Visit: Yes Status: Acute Comment: likely source of sepsis ceftriaxone
[2019-11-22] MEDS: Ibuprofen TAB* 400 MG PO PRN (22:04)
[2019-11-23] MEDS: NS 0.9% 1000 ML** 1,000 ML IV SCH ×3 (06:12→20:47)
[2019-11-23 06:16] LABS: ABS Lymphocytes 0.6 10^3/ul (1.0-4.8); ABS Monocytes 0.3 10^3/ul (0-0.8); ABS Neutrophils 4.4 10^3/ul (1.5-7.7); Eosinophil % 0.3 %; Hematocrit 33 % (35-47); Hemoglobin 11.6 g/dL (12.0-16.0); Lymphocyte % 11.9 %; Mean Corpuscular HGB Conc 35 g/dL (31-36); Mean Corpuscular Hemoglobin 33 pg (27-31); Mean Corpuscular Volume 93 fL (80-97); Mean Platelet Volume 7.2 fL (7.4-10.4); Nucleated Red Blood Cells % 0.1; Platelet Count 174 10^3/uL (150-450); Red Blood Count 3.54 10^6 /uL (3.70-4.87); Red Cell Distribution Width 13 % (10-15); White Blood Count 5.4 10^3/uL (3.5-10.8)
[2019-11-23 06:27] LABS: BUN/Creatinine Ratio 7.9 (8-20); Calcium 8.1 mg/dL (8.6-10.3); EGFR African American 95.1 (>60); EGFR Non-African American 78.6 (>60); Potassium 3.6 mmol/L (3.5-5.0)
[2019-11-23] MEDS: Ibuprofen TAB* 400 MG PO PRN ×2 (07:58→16:59)
[2019-11-23] MEDS: Acetaminophen TAB* 325 MG PO PRN (07:59)
[2019-11-23] MEDS: cefTRIAXone* 1 GM in NS 0.9% 50 ML BAG IVPB SCH (09:32)
--- NOTE | 2019-11-23 14:25 | PN ---
Subjective Date of Service: 11/23/19 Interval History: Reports feeling better,.no flank pain nausea Objective Active Medications: Acetaminophen (Tylenol Tab*) 650 mg PO Q6H PRN PRN Reason: MILD PAIN or TEMP > 100.4 Last Admin: 11/23/19 07:59 Dose: 650 mg Sodium Chloride (Ns 0.9% 1000 Ml) 1,000 mls @ 150 mls/hr IV PER RATE [facility] Last Admin: 11/23/19 13:54 Dose: 150 mls/hr Ceftriaxone Sodium 1 gm/ (Sodium Chloride) 50 mls @ 100 mls/hr IVPB Q24H [facility] Last Admin: 11/23/19 09:32 Dose: 100 mls/hr Ibuprofen (Motrin Tab*) 400 mg PO Q8H PRN PRN Reason: PAIN - MODERATE Last Admin: 11/23/19 07:58 Dose: 400 mg Ondansetron HCl (Zofran Inj*) 4 mg IV Q6H PRN PRN Reason: NAUSEA Vital Signs - 8 hr 11/23/19 11/23/19 11/23/19 07:36 08:00 09:31 Temperature 100.8 F 98.4 F Pulse Rate 106 71 Respiratory 16 16 Rate Blood Pressure 130/75 (mmHg) O2 Sat by Pulse 99 Oximetry 11/23/19 11:33 Temperature 97 F Pulse Rate 86 Respiratory 16 Rate Blood Pressure 136/98 (mmHg) O2 Sat by Pulse 100 Oximetry Oxygen Devices in Use Now: None Eyes: No Scleral Icterus Ears/Nose/Mouth/Throat: NL Teeth, Lips, Gums Neck: NL Appearance and Movements; NL JVP Respiratory: Symmetrical Chest Expansion and Respiratory Effort Cardiovascular: NL Sounds; No Murmurs; No JVD Abdominal: NL Sounds; No Tenderness; No Distention Extremities: No Edema Neurological: Alert and Oriented x 3 Result Diagrams: 11/23/19 06:01 11/23/19 06:01 Microbiology and Other Data: Microbiology 11/20/19 22:53 Aerobic Blood Culture - Final Blood Venous Escherichia Coli Anaerobic Blood Culture - Preliminary No Growth Day 1 11/20/19 23:03 Aerobic Blood Culture - Preliminary Blood Venous No Growth Day 1 Anaerobic Blood Culture - Final Escherichia Coli Assess/Plan/Problems-Billing Assessment: - Patient Problems (1) Sepsis Current Visit: Yes Status: Acute Comment: E coli in Blood On ceftriaxone Sensitive to ceftriaxone Blood cx repeated today after 48h on antibiotics If clear and echo neg for endocarditis, pt can be discharged tomorrow on po antibiotics (2) Nephrolithiasis Current Visit: Yes Status: Acute Code(s): N20.0 - CALCULUS OF KIDNEY SNOMED Code(s): 97106401 Comment: with hydro and uti s/p ureteral stent placement kub today reviewed will need further f/u with urology once infection clears (3) UTI (urinary tract infection) Current Visit: Yes Status: Acute Comment: likely source of sepsis ceftriaxone
[2019-11-24] MEDS: NS 0.9% 1000 ML** 1,000 ML IV SCH ×2 (03:02→09:50)
[2019-11-24] MEDS: Ibuprofen TAB* 400 MG PO PRN ×2 (03:02→12:05)
[2019-11-24 06:18] LABS: ABS Eosinophils 0.1 10^3/ul (0-0.6); ABS Lymphocytes 0.9 10^3/ul (1.0-4.8); ABS Monocytes 0.6 10^3/ul (0-0.8); ABS Neutrophils 2.9 10^3/ul (1.5-7.7); Eosinophil % 1.7 %; Hematocrit 34 % (35-47); Hemoglobin 11.5 g/dL (12.0-16.0); Lymphocyte % 20.4 %; Mean Corpuscular HGB Conc 34 g/dL (31-36); Mean Corpuscular Hemoglobin 33 pg (27-31); Mean Corpuscular Volume 95 fL (80-97); Mean Platelet Volume 7.1 fL (7.4-10.4); Nucleated Red Blood Cells % 0.2; Platelet Count 221 10^3/uL (150-450); Red Blood Count 3.53 10^6 /uL (3.70-4.87); Red Cell Distribution Width 13 % (10-15); White Blood Count 4.5 10^3/uL (3.5-10.8)
[2019-11-24 06:41] LABS: BUN/Creatinine Ratio 5.9 (8-20); EGFR African American 100.3 (>60); EGFR Non-African American 82.9 (>60); Potassium 3.3 mmol/L (3.5-5.0)
[2019-11-24] MEDS: cefTRIAXone* 1 GM in NS 0.9% 50 ML BAG IVPB SCH (09:50)
[2019-11-24 11:47] VITALS: BP 134/82
--- NOTE | 2019-11-24 12:08 | ECHO ---
*[facility]* [place] [address] Fax #: [phone] Transthoracic Echocardiogram Patient: Donya Howard : 1995 Study Date: 11/24/2019 Age: 24 Gender: F HR: 63 bpm Height: 69 in /175.3 cm BSA: 2.02 m^2 Weight: 189.6 lb /86.2 kg BMI: 28.1 kg/m^2 *[place]: * Ny Reddy RDCS RN *Referring Physician: * Kathryn Gonzalez *Reading Physician: * Karthik Singh MD Indications: Bacteremia. History: Kidney stones. Current UTI and E. coli bacteremia. Conclusions Summary: - Left ventricle: Systolic function is normal. The estimated ejection fraction is 55-60%. Wall motion is normal; there are no regional wall motion abnormalities. - Mitral valve: There is no evidence of a vegetation. There is trace to mild regurgitation. - Aortic valve: There is no evidence of a vegetation. There is no evidence of stenosis. - Tricuspid valve: There is no evidence of a vegetation. - Pulmonary arteries: Systolic pressure is within the normal range, estimated to be 29 mm Hg. - Study data: No prior study is available for comparison. Study data: Transthoracic echocardiogram. Procedure: Transthoracic echocardiography was performed. Image quality was fair. The study was technically limited due to body habitus. Complete 2D, spectral Doppler, and color flow Doppler. Location: Bedside. Patient status: Inpatient. Patient room number: 332. No prior study is available for comparison. Rhythm: Normal sinus rhythm with PVCs. Findings Left ventricle: The cavity size is normal. Septal wall thickness is slightly increased. Systolic function is normal. The estimated ejection fraction is 55-60%. Wall motion is normal; there are no regional wall motion abnormalities. Left ventricular diastolic function parameters are normal. Right ventricle: The cavity size is normal. Systolic function is low normal. Left atrium: The atrium is normal in size. Right atrium: The atrium is normal in size. Mitral valve: The leaflets are mildly thickened. There is no evidence of a vegetation. There is no evidence of stenosis. There is trace to mild regurgitation. Aortic valve: The valve is trileaflet. The leaflets are normal thickness. There is no evidence of a vegetation. There is no evidence of stenosis. There is no regurgitation. Tricuspid valve: The valve is structurally normal. There is no evidence of a vegetation. There is no evidence of stenosis. There is trace to mild regurgitation. Pulmonic valve: The valve is structurally normal. There is no evidence of a vegetation. There is no evidence of stenosis. There is trace regurgitation. Pericardium: There is no significant pericardial effusion. Pulmonary arteries: The main pulmonary artery is normal-sized. Systolic pressure is within the normal range, estimated to be 29 mm Hg. Systemic veins: Inferior vena cava: Not well visualized. Measurements Left ventricle Value Ref Aortic valve continued Value Ref IHSAN, LAX 4.7 cm 3.8 - 5.2 Peak v, S 1.5 m/sec ---- ESD, LAX 3.1 cm 2.2 - 3.5 VTI, S 31.3 cm ---- PW, ED 0.9 cm 0.6 - 0.9 Mean grad, S 5.0 mm Hg ---- IVS/PW, ED 1.23 Peak grad, S 9.0 mm Hg ---- E', lat bar, TDI 14.6 cm/sec >=10.0 LVOT/AV, VTI ratio 0.83 ---- E/e', lat bar, 7 TDI Mitral valve Value Ref E', med bar, TDI 10.8 cm/sec >=7.0 Peak E 1.02 m/sec ---- E/e', med bar, 9 Peak A 0.42 m/sec --- - TDI Decel time 190 ms ---- E', avg, TDI 12.7 cm/sec Peak grad, D 4.2 mm Hg --- - E/e', avg, TDI 8 <=14 Peak E/A ratio 2.4 ---- LVOT Value Ref Pulmonic valve Value Ref Peak eric, S 1.17 m/sec Peak v, S 0.81 m/sec ---- VTI, S 26.0 cm Peak grad, S 3.0 mm Hg ---- Peak grad, S 5 mm Hg Mean grad, S 3 mm Hg Tricuspid valve Value Ref Peak RV-RA grad, S 21 mm Hg ---- Ventricular septum Value Ref Max TR eric 2.3 m/sec ---- IVS, ED (H) 1.1 cm 0.6 - 0.9 Aortic root Value Ref Right ventricle Value Ref Root diam 2.6 cm <3.7 IHSAN, LAX 3.0 cm Root max diam, ED 2.6 cm <3.7 IHSAN minor ax, A4C (H) 3.8 cm 1.9 - 3.5 mid Ascending aorta Value Ref Pressure, S 29 mm Hg AAo AP diam, S 2.5 cm ---- AAo AP diam/bsa, S 1.2 cm/m^2 ---- Left atrium Value Ref AP dim, ES 3.80 cm 2.70 - Aortic arch Value Ref 3.80 Arch diam 2.3 cm ---- ML dim, A4C 4.1 cm SI dim, A4C 4.8 cm Decending aorta Value Ref Vol/bsa, ES, 1-p 22 ml/m^2 11 - 40 Osbaldo peak eric 1.2 m/sec ---- A4C Vol/bsa, ES, A/L 26 ml/m^2 16 - 34 Pulmonary artery Value Ref Pressure, S 29.0 mm Hg ---- Right atrium Value Ref ML dim, ES, A4C 4.0 cm 2.6 - 4.4 SI dim, ES, A4C 5.0 cm 3.4 - 5.3 Aortic valve Value Ref Bar diam, ED 2.0 cm Legend: (L) and (H) del values outside specified reference range. Prepared and electronically signed by Karthik Singh MD 11/24/2019 12:07
[2019-11-24] MEDS ORDERED: Potassium Chlor TAB* 10 MEQ TAB.ER PO ONE (12:45)
--- NOTE | 2019-11-24 15:35 | DS ---
DISCHARGE SUMMARY: DATE OF ADMISSION: 11/21/19 DATE OF DISCHARGE: 11/24/19 PRIMARY DIAGNOSES: 1. Escherichia coli sepsis. 2. Pyelonephritis. 3. Nephrolithiasis. 4. Left-sided hydronephrosis and left renal colic with pyelonephritis and kidney stone. SECONDARY DIAGNOSIS: History of kidney stones. HOSPITAL COURSE: A 24-year-old female with past medical history of kidney stones, with this being her third kidney stone, came into the hospital with complaints of severe left-sided flank pain, also had fever of 101, burning with urination, and chills. The patient in the past had passed her kidney stones needing no procedures. The patient had abdominal x-ray done on 11/20/19, which was unrevealing. The patient had a renal ultrasound done on 11/20/19, which showed mild left hydro, but no visible calculus. The patient had a prior noncontrast CT of the abdomen and pelvis and at that time had been noted to have a 6 mm calculus in the left ureteropelvic junction and 2 other smaller calculi in the left kidney 3 months ago. She was managed conservatively. Urology was contacted. Because she had a recent CT, it was decided not to repeat the CT to avoid additional exposure. With a history of left renal calculi , fever, white count, and infected urine, decision was made to proceed with placement of left ureteral stent in preparation for definitive treatment of the stone. The patient had a cystoscopy, left retrograde pyelography, and insertion of left ureteral stent on 11/21/[address] Thibodeaux. Appreciate urology input. The patient also had UA suggestive of infection and blood cultures were drawn. The patient's blood cultures came back positive with E. coli and the patient was started empirically on IV ceftriaxone. Her E. coli was later noted to be sensitive to ceftriaxone. IV antibiotics were continued for 72 hours. Repeat cultures at 48 hours from yesterday noted to be negative and the E. coli in the blood has cleared. The patient's symptoms have also significantly improved. The patient does not have any further flank pain. Does not have fevers, chills. Reports feeling significantly better. The patient's nausea has improved. In light of this, the patient will be discharged today on oral antibiotics. The patient to complete Ceftin 500 mg p.o. b.i.d. for 7 more days to complete a total of 10 days. The patient also had echocardiogram done to rule out endocarditis in the setting of her sepsis and bacteremia. The patient's echo showed an ejection fraction of 55% to 60%. Wall motion was normal. No regional wall motion abnormalities. No vegetation was noted in the mitral, aortic, or tricuspid valve. Vitals and labs noted to be stable at the time of discharge. PHYSICAL EXAM AT THE TIME OF DISCHARGE: Temperature 97.8, pulse 73, respiratory rate 16, oxygen saturation 100% on room air, blood pressure 134/82. HEENT: NC/AT. Heart: S1, S2 present. Regular at the time of exam. Lungs: Clear to auscultation. Abdomen: Soft. Extremities: No edema. Neuro: Alert , oriented x3. LABORATORY DATA: Labs at the time of discharge: WBC 4.5, previously was 16 when she came into the hospital; hemoglobin 11.5; hematocrit 34; platelets noted to be 221. Sodium 136, potassium 3.3 which was replaced prior to discharge, chloride 105, CO2 23, BUN 5, creatinine 0.8. Of note, the patient's initial CMP also showed an elevated bilirubin of 1.6. The patient's other liver enzymes were within normal limits with AST being 15, ALT being 13, alkaline phosphatase being 53. Recommend repeating her CMP, the patient does not have any abdominal pain currently as an outpatient. MEDICATION LIST AT THE TIME OF DISCHARGE: 1. Zofran 4 mg every 8 hours p.r.n. 2. Fluoxetine 20 mg p.o. daily. 3. NuvaRing. 4. Ceftin 500 mg p.o. b.i.d. for 7 more days. CONDITION: Stable. DISPOSITION: Discharged home. FOLLOWUP INSTRUCTIONS: 1. The patient to follow up with her PCP in a week. 2. The patient to follow up with Dr. Thibodeaux for definitive management of stones and stent removal. The patient to see Urology and contact them within a week. TIME SPENT: Total time spent on discharge is equal to 50 minutes. [id number]/CPS #: [id number] [email or web address]
== END 2019-11-24 13:05 | disposition home or self-care (01) | DRG 720 ==
LOC: ED 20:09 → AA 11-21 07:03 → SSU 11-21 07:04
PROVIDERS: ADMIT Internal Medicine; ATTEND Internal Medicine
PROC: BT1FZZZ Fluoroscopy of Left Kidney, Ureter and Bladder (ICD-10-PCS; 2019-11-21)
PROC: 0T778DZ Dilation of Left Ureter with Intraluminal Device, Via Natural or Artificial Opening Endoscopic (ICD-10-PCS; principal; 2019-11-21 07:00)
DX: A41.51 Sepsis due to Escherichia coli [E. coli] (principal); N13.6 Pyonephrosis; F32.9 Major depressive disorder, single episode, unspecified; Z87.442 Personal history of urinary calculi
CPT/HCPCS: 36415; 74018; 74420; 76775; 80048; 80053; 81003; 81015; 83605; 84702; 85025; 86140; 87040; 87077; 87086; 87186; 87205; 93306; 96374; 99285; A9270-GY; J0696; J1100; J1885; J2250; J2405; J2704; J2765; J3010

== ENCOUNTER → 2019-12-11 05:32 | Day surgery (SDC) | payer BC ==
--- NOTE | 2019-12-02 23:44 | HP ---
CC: Dr. Crocker * HISTORY AND PHYSICAL: DATE OF PLANNED ADMISSION AND SURGERY: 12/11/19 HISTORY OF PRESENT ILLNESS: Ms. Howard is a 24-year-old white female who is admitted with history of left ureteral calculi, status post placement of left ureteral stent, for cystoscopy, left ureteroscopy, laser lithotripsy, and left ureteral stent exchange. Ms. Howard has past history of renal calculus disease. She had presented to the emergency room about 3 months ago with symptoms of left renal colic and had a noncontrast CT of the abdomen and pelvis which showed a 6 mm calculus at the left ureteropelvic junction and small left renal calculi. She was managed conservatively and was followed by her primary care physician, Dr. Crocker. She was advised to report back for followup; however, the patient was doing fine and did not follow with urology consultation. She did not notice passage of any calculus. The patient presented to the urgent care center on 11/21/19 with fever, chills, and acute left flank pain. Her fever was about 101. She was then referred to the emergency room where she had a renal ultrasound. The study showed mild left hydronephrosis, but no jets were noted from the left ureteral orifice. At that time, her lab work showed an elevated white count of 16,000 with a shift to the left. Her serum creatinine was 1.07. Her CRP was elevated at 83. Her lactic acid was normal. Her urinalysis was positive for esterase and nitrites. Because of the above history and findings, the patient had blood and urine cultures obtained, was started on IV ceftriaxone, and was taken urgently to the operating room where she had an insertion of left ureteral stent. The patient was kept in observation in the hospital. The two blood cultures and the urine culture were all positive for pansensitive E. coli. She was kept on intravenous antibiotic for 3 days. She was feeling much better and the temperature went down and she was discharged home on Ceftin. KUB showed the left stent to be in good position and there were small calcifications alongside the stent. Renal ultrasound done in the office showed a 2 mm calculus in the lower pole calyx of the left kidney and the left stent in good position, but no other abnormalities. Because of the above history and namely the history of sepsis, the patient is brought in for left ureteroscopy and laser litho of ureteral calculi and left ureteral stent exchange. PAST MEDICAL HISTORY AND SYSTEM REVIEW: She is in excellent health. MEDICATIONS: Her only chronic medication is Prozac. She has a NuvaRing for contraception. ALLERGIES: She denies any allergies to medications. FAMILY HISTORY: Relevant for renal disease in her mother. SOCIAL HISTORY: She rarely drinks alcohol. She denies any drug use. REVIEW OF SYSTEMS: Mental health is relevant for depression for which she takes Prozac. PHYSICAL EXAMINATION GENERAL: Pleasant and healthy-looking white female. VITAL SIGNS: Blood pressure 100/70, pulse of 70. LUNGS: Clear. HEART: Regular and rhythmic. No murmurs. ABDOMEN: No CVA tenderness. IMPRESSION: Recent episode of left renal colic caused by an obstructing left ureteral calculus with acute pyelonephritis and urosepsis with positive blood cultures, managed with stent insertion and antibiotics. PLAN/RECOMMENDATIONS: Cystoscopy, left ureteroscopy, laser lithotripsy, and left ureteral stent exchange. I discussed the above plans with the patient and her mother and all their questions were answered. [id number]/CPS #: [id number] [email or web address]
[~2019-12-11 05:32] MED LIST changes: +Acetaminophen TAB* 325 MG PO PRN; -Azithromycin TAB* 250 MG PO ONE; +Buffered Lidocaine 1% SYRIN* 1 ML/SYRINGE INTRADERM ONE; +Dexamethasone IV* 4 MG/ML 1 ML (4 MG) ONE; +DiMENhydriNATE IV* 50 MG/ML VIAL IV PUSH PRN; +Iohexol 180 (CONTRAST) 10 ML SDV IV ONE; +Ketorolac INJ* 30 MG/ML 1 ML VIAL ONE; +Lactated Ringers 1000 ML Bag* 1,000 ML IV SCH; -Levonorgestrel 1.5 MG TAB PO ONE; -Lidocaine 1%* 5 ML VIAL ONE; +Lidocaine 2% PF * 5 ML VIAL ONE; +Metoclopramide IV* 5 MG/ML 2 ML VIAL ONE; +Midazolam* 1 MG/ML 2 ML VIAL (2 MG) ONE; +Naloxone* 0.4 MG/ML 1 ML VIAL IV PRN; +Ondansetron INJ* 2 MG/ML VIAL ONE; -Ondansetron ODT TAB* 4 MG ONE; -Ondansetron ODT TAB* 4 MG SL PRN; +Propofol* 10 MG/ML 20 ML BTL ONE; -cefTRIAXone VIAL(*) 250 MG VIAL IM ONE; +cefTRIAXone(*) 1 GM ADVAN/BAG ONE; +fentaNYL* 50 MCG/ML 2 ML VIAL (100 MCG VIAL) IV PRN; +fentaNYL* 50 MCG/ML 2 ML VIAL (100 MCG VIAL) ONE; -metroNIDAZOLE TAB* 250 MG PO ONE; +oxyCODONE TAB* 5 MG TAB PO PRN
[2019-12-11 09:19] VITALS: BP 134/92
--- NOTE | 2019-12-11 14:43 | OP ---
CC: Dr. Crocker * DATE OF OPERATION: 12/11/19 - [facility] DATE OF : 89 SURGEON: Madi Thibodeaux MD ANESTHESIOLOGIST: Dr. Blackmon. ANESTHESIA: General. PRE-OP DIAGNOSES: 1. Left ureteral calculus. 2. Status post placement of left ureteral stent. POST-OP DIAGNOSES: 1. Left ureteral calculus. 2. Status post placement of left ureteral stent. OPERATIVE PROCEDURE: 1. Cystoscopy. 2. Left ureteroscopy and extraction of left ureteral calculus. 3. Left retrograde pyelography and left ureteral stent exchange (6-Thai). INDICATION FOR PROCEDURE: Ms. Howard is a 24-year-old white female who presented to the emergency room about 3 weeks ago with symptoms of left renal colic associated with fever and chills. She was noted to have an obstructed left kidney and had signs consistent with sepsis. She was taken urgently to the operating room where she had insertion of a left ureteral stent. The blood cultures drawn on admission were positive for E. coli. She was treated with antibiotics and she did fine. She is now admitted for definitive treatment of the stone. OPERATIVE FINDINGS: At cystoscopy, the distal limb of the stent was seen coming from the left ureteral orifice. There was the expected edema and hyperemia of the bladder mucosa adjacent to the stent. Upon left ureteroscopy, there was a 6 mm calculus located about 3 cm above the ureteral orifice. The calculus had the gross appearance of a calcium oxalate stone. There was edema of the ureteral mucosa adjacent to the stone. Ureteroscopy all the way to the level of the ureteropelvic junction showed no other calculi. Retrograde pyelography showed mild left hydronephrosis. DESCRIPTION OF PROCEDURE: After successful general anesthesia, the patient was placed in the lithotomy position and was prepped and draped for a cystoscopy. Cystoscopy was performed. The bladder was inspected and the above findings were noted. The distal limb of the left ureteral stent was pulled out to the level of the urethral meatus. A flexible-tip guidewire was then introduced through the lumen of the stent and positioned in the area of the renal pelvis. The stent was removed keeping the guidewire in place. A 6.5 semi-rigid ureteroscope was then introduced inside the bladder. A flexible-tip basket was introduced through the port of the ureteroscope and its flexible tip was then introduced inside the left ureteral orifice alongside the guidewire. That allowed the atraumatic introduction of the ureteroscope inside the ureter. The calculus was identified. The calculus was then engaged with a basket. Because of the passive dilatation of the ureter from the presence of the stent, the stone was extracted without trauma to the ureteral wall. The stone was sent for stone analysis. The cystoscope was then reintroduced over the guidewire. Retrograde pyelography was performed. A size 6-Thai stent was then placed with the proximal end coiling in the collecting system and the distal end coiling inside the bladder. There was good drainage of contrast from the kidney and no extravasation. The patient tolerated the procedure well and left the operating room in good condition. The plan is to see the patient in the office next week and the stent will be removed under local anesthesia. [id number] #: [id number]
== END | disposition home or self-care (01) ==
LOC: OR 05:32
PROVIDERS: ATTEND Urology
DX: N20.1 Calculus of ureter (principal); F32.9 Major depressive disorder, single episode, unspecified
CPT/HCPCS: 74420; 81025; 82365; 88300; C1876; J0696; J1100; J1885; J2250; J2405; J2704; J2765; J3010